=== PATIENT | female | born 1950 | race Caucasian/White ===

== ENCOUNTER 2017-06-24 10:56 | Inpatient (IN) | payer MEDICARE, BC ==
[~2017-06-24] VITALS: Ht 172.7 cm; Wt 97.1 kg
[2017-06-24] MEDS ORDERED: MECLIZINE CHEWABLE 25 MG TAB PO ONE (12:00)
[2017-06-24] MEDS ORDERED: SODIUM CHLORIDE FLUSH 10ML SYR IVF ONE (12:00)
[2017-06-24] MEDS ORDERED: SODIUM CHLORIDE 0.9% 1,000ML IVBOLUS ONE (12:00)
[2017-06-24] MEDS ORDERED: DIAZEPAM 5 MG/ML, 10ML VIAL IV ONE (12:00)
[2017-06-24] MEDS ORDERED: MECLIZINE CHEWABLE 25 MG TAB ONE (12:26)
[2017-06-24 12:59] LABS: BASOPHILS # (AUTO) 0.06 x10^3/uL (0-0.1); BASOPHILS % (AUTO) 1 % (0-1); EOSINOPHILS # (AUTO) 0.13 x10^3/uL (0-0.4); EOSINOPHILS % (AUTO) 1 % (1-7); LYMPHOCYTES # (AUTO) 1.42 x10^3/uL (1-3.4); LYMPHOCYTES % (AUTO) 14 % (22-44); MD NO; MEAN CORPUSCULAR HEMOGLOBIN 28.3 pg (27.0-34.8); MEAN CORPUSCULAR HGB CONC 33.1 g/dL (32.4-35.8); MEAN CORPUSCULAR VOLUME 85.7 fL (80-100); MONOCYTES # (AUTO) 0.89 x10^3/uL (0.2-0.8); MONOCYTES % (AUTO) 9 % (2-9); NEUTROPHILS # (AUTO) 7.47 x10^3/uL (1.8-6.8); NEUTROPHILS % (AUTO) 75 % (42-75); PLATELET COUNT 283 x10^3/uL (130-400); RED BLOOD COUNT 4.78 x10^6/uL (3.82-5.3); RED CELL DISTRIBUTION WIDTH 14.7 % (9.6-15.2)
[2017-06-24 13:00] LABS: INTERNATIONAL NORMALIZED RATIO 0.92 (0.93-1.1); PROTHROMBIN TIME 9.6 Seconds (9.6-11.5)
[2017-06-24 13:01] LABS: ALBUMIN 3.5 g/dL (3.4-5.0); ANION GAP 5 mmol/L (5-15); CALCIUM 8.6 mg/dL (8.5-10.1); CHLORIDE 108 mmol/L (98-107)
[2017-06-24 13:06] LABS: ALANINE AMINOTRANSFERASE 22 U/L (12-78); ALKALINE PHOSPHATASE 105 U/L (45-117); BILIRUBIN,TOTAL 0.4 mg/dL (0.2-1.0); CREATININE 0.68 mg/dL (0.55-1.02); TOTAL PROTEIN 7.6 g/dL (6.4-8.2); TROPONIN I < 0.015 ng/mL (0.000-0.045)
[2017-06-24] MEDS ORDERED: MECLIZINE CHEWABLE 25 MG TAB PO PRN (16:00)
[2017-06-24] MEDS: PLEASE ENTER ALLERGIES MC SCH ×2 (16:00→22:52)
[2017-06-24] MEDS ORDERED: METOCLOPRAMIDE 5 MG/ML, 2ML IVPush PRN (16:00)
[2017-06-24] MEDS ORDERED: ONDANSETRON 2MG/ML, 2ML IVPush PRN (16:00)
[2017-06-24] MEDS ORDERED: BISACODYL 10 MG SUPP PR PRN (16:00)
[2017-06-24] MEDS ORDERED: ENALAPRILAT 1.25 MG/ML, 2ML IVPush PRN (16:00)
[2017-06-24] MEDS ORDERED: DOCUSATE 100 MG CAPSULE PO PRN (16:00)
[2017-06-24] MEDS ORDERED: POLYETHYLENE GLYCOL 17 GM PACKET PO PRN (16:00)
[2017-06-24] MEDS ORDERED: LEVO25TA2 PO (16:19)
[2017-06-24] MEDS ORDERED: TRAM50TA2 PO (16:19)
[2017-06-24] MEDS ORDERED: DULO20CA45 PO (16:19)
[2017-06-24] MEDS ORDERED: GADOBUTROL 10 MMOL/10 ML PFS ONE (16:25)
[2017-06-24 18:12] VITALS: BP 151/83
[2017-06-24 18:20] LABS: MICROSCOPIC AUTO
[2017-06-24 18:22] LABS: CULTURE INDICATED? YES
[2017-06-24 20:15] VITALS: BP 122/70
[2017-06-25 02:00] VITALS: BP 108/63
[2017-06-25 02:18] VITALS: BP 121/67
[2017-06-25 07:10] VITALS: BP 125/74
[2017-06-25] MEDS ORDERED: MECL-85 PO (09:04)
[2017-06-25] MEDS ORDERED: DIAZEPAM 5 MG TABLET PO PRN (12:00)
[2017-06-25] MEDS ORDERED: DIAZEPAM 5 MG TABLET PO ONE (14:30)
[2017-06-25 15:09] VITALS: BP 147/84
[2017-06-25] MEDS ORDERED: SUMATRIPTAN 50 MG TABLET PO PRN (18:00)
[2017-06-25] MEDS ORDERED: SUMATRIPTAN 50 MG TABLET PO ONE (18:00)
[2017-06-25 20:00] VITALS: BP 153/81
[2017-06-26] VITALS (10 sets, daily range): BP systolic 143–169; BP diastolic 79–97
[2017-06-26] MEDS ORDERED: SODIUM CHLORIDE 0.9%, 500ML IVBOLUS ONE (12:30)
[2017-06-26] MEDS: ACETAMINOPHEN 325 MG TABLET PO PRN ×2 (17:53→22:30)
[2017-06-27] VITALS (15 sets, daily range): BP systolic 135–183; BP diastolic 82–109
[2017-06-27 05:26] LABS: BASOPHILS # (AUTO) 0.07 x10^3/uL (0-0.1); BASOPHILS % (AUTO) 1 % (0-1); EOSINOPHILS # (AUTO) 0.34 x10^3/uL (0-0.4); EOSINOPHILS % (AUTO) 4 % (1-7); LYMPHOCYTES # (AUTO) 2.59 x10^3/uL (1-3.4); LYMPHOCYTES % (AUTO) 30 % (22-44); MD NO; MEAN CORPUSCULAR HEMOGLOBIN 28.7 pg (27.0-34.8); MEAN CORPUSCULAR HGB CONC 33.4 g/dL (32.4-35.8); MEAN PLATELET VOLUME 7.9 fL (7.4-10.4); MONOCYTES # (AUTO) 1.14 x10^3/uL (0.2-0.8); MONOCYTES % (AUTO) 13 % (2-9); NEUTROPHILS # (AUTO) 4.58 x10^3/uL (1.8-6.8); NEUTROPHILS % (AUTO) 53 % (42-75); PLATELET COUNT 305 x10^3/uL (130-400); RED BLOOD COUNT 4.96 x10^6/uL (3.82-5.3); RED CELL DISTRIBUTION WIDTH 14.8 % (9.6-15.2)
[2017-06-27 05:40] LABS: ANION GAP 9 mmol/L (5-15); CALCIUM 9.4 mg/dL (8.5-10.1); CHLORIDE 107 mmol/L (98-107); CREATININE 0.66 mg/dL (0.55-1.02)
[2017-06-27] MEDS: LEVOTHYROXINE 25 MCG TABLET PO SCH (06:32)
[2017-06-27] MEDS ORDERED: SODIUM CHLORIDE 0.9%, 500ML IVBOLUS ONE (12:30)
[2017-06-27] MEDS: ACETAMINOPHEN 325 MG TABLET PO PRN (15:13)
[2017-06-27] MEDS: DULOXETINE 20 MG CAPSULE.DR PO SCH (16:47)
[2017-06-27] MEDS ORDERED: LABETALOL 5MG/ML, 20ML IVPush ONE (21:00)
[2017-06-28 02:41] VITALS: BP 144/82
[2017-06-28 02:43] VITALS: BP 110/73
[2017-06-28 05:19] LABS: BASOPHILS # (AUTO) 0.08 x10^3/uL (0-0.1); BASOPHILS % (AUTO) 1 % (0-1); EOSINOPHILS # (AUTO) 0.27 x10^3/uL (0-0.4); EOSINOPHILS % (AUTO) 3 % (1-7); LYMPHOCYTES # (AUTO) 2.51 x10^3/uL (1-3.4); LYMPHOCYTES % (AUTO) 25 % (22-44); MD NO; MEAN CORPUSCULAR HEMOGLOBIN 28.4 pg (27.0-34.8); MEAN CORPUSCULAR HGB CONC 33.2 g/dL (32.4-35.8); MEAN CORPUSCULAR VOLUME 85.4 fL (80-100); MEAN PLATELET VOLUME 7.8 fL (7.4-10.4); MONOCYTES # (AUTO) 1.15 x10^3/uL (0.2-0.8); MONOCYTES % (AUTO) 11 % (2-9); NEUTROPHILS % (AUTO) 61 % (42-75); PLATELET COUNT 315 x10^3/uL (130-400); RED BLOOD COUNT 5.43 x10^6/uL (3.82-5.3); RED CELL DISTRIBUTION WIDTH 14.7 % (9.6-15.2)
[2017-06-28 06:04] LABS: ALBUMIN 3.4 g/dL (3.4-5.0); ANION GAP 7 mmol/L (5-15); CALCIUM 9.5 mg/dL (8.5-10.1); CHLORIDE 108 mmol/L (98-107); CREATININE 0.76 mg/dL (0.55-1.02)
[2017-06-28] MEDS: LEVOTHYROXINE 25 MCG TABLET PO SCH (06:19)
[2017-06-28 07:08] VITALS: BP_SYST 130; BP_SYST 136; BP_DIAS 82; BP_DIAS 85
[2017-06-28 07:30] VITALS: BP_SYST 119; BP_SYST 127; BP_SYST 130; BP_SYST 135; BP_DIAS 85; BP_DIAS 88; BP_DIAS 91
[2017-06-28] MEDS: DULOXETINE 20 MG CAPSULE.DR PO SCH (09:01)
== END 2017-06-28 10:32 | disposition home or self-care (01) | DRG 312 ==
LOC: ED 13:47 → INTOOBSV 14:30 → EDIP 14:30 → 4WST 17:30 → OBSVTOIN 06-27 14:42
PROVIDERS: ADMIT Internal Medicine; ATTEND Internal Medicine
DX: I95.1 Orthostatic hypotension (principal); I11.9 Hypertensive heart disease without heart failure; I65.23 Occlusion and stenosis of bilateral carotid arteries; R42 Dizziness and giddiness; W18.30XA Fall on same level, unspecified, initial encounter; E03.9 Hypothyroidism, unspecified; F32.9 Major depressive disorder, single episode, unspecified; H91.90 Unspecified hearing loss, unspecified ear; G43.909 Migraine, unspecified, not intractable, without status migrainosus; Z66 Do not resuscitate; Y93.89 Activity, other specified; Y92.89 Other specified places as the place of occurrence of the external cause; Y99.8 Other external cause status; Z90.49 Acquired absence of other specified parts of digestive tract; Z79.899 Other long term (current) drug therapy; Z88.0 Allergy status to penicillin
CPT/HCPCS: 36415; 70450; 70553; 80048; 80053; 81001; 82040; 83605; 83735; 84100; 84484; 85025; 85610; 87086; 93005; 93306; 93880; 96360; A9585; G0378; J3360; J7030; J7040

== ENCOUNTER 2018-04-19 11:38 | Observation (INO) | payer MEDICARE, BC ==
[~2018-04-19] VITALS: Ht 172.7 cm; Wt 96.8 kg
[~2018-04-19 11:38] MED LIST: DULO20CA45 PO; LEVO25TA2 PO; MECL-85 PO; TRAM50TA2 PO
[2018-04-19] MEDS ORDERED: ONDANSETRON 2MG/ML, 2ML ONE (12:40)
[2018-04-19] MEDS ORDERED: MECLIZINE CHEWABLE 25 MG TAB ONE (12:40)
[2018-04-19 12:51] LABS: BASOPHILS # (AUTO) 0.06 x10^3/uL (0-0.1); BASOPHILS % (AUTO) 1 % (0-1); EOSINOPHILS # (AUTO) 0.31 x10^3/uL (0-0.4); EOSINOPHILS % (AUTO) 3 % (1-7); LYMPHOCYTES # (AUTO) 1.86 x10^3/uL (1-3.4); LYMPHOCYTES % (AUTO) 19 % (22-44); MD NO; MEAN CORPUSCULAR HEMOGLOBIN 28.1 pg (27.0-34.8); MEAN CORPUSCULAR HGB CONC 33.1 g/dL (32.4-35.8); MEAN CORPUSCULAR VOLUME 84.7 fL (80-100); MONOCYTES # (AUTO) 0.69 x10^3/uL (0.2-0.8); MONOCYTES % (AUTO) 7 % (2-9); NEUTROPHILS # (AUTO) 6.74 x10^3/uL (1.8-6.8); NEUTROPHILS % (AUTO) 70 % (42-75); PLATELET COUNT 336 x10^3/uL (130-400); RED BLOOD COUNT 4.87 x10^6/uL (3.82-5.3); RED CELL DISTRIBUTION WIDTH 15.1 % (9.6-15.2)
[2018-04-19] MEDS ORDERED: ONDANSETRON 2MG/ML, 2ML IVPush ONE (13:00)
[2018-04-19] MEDS ORDERED: SODIUM CHLORIDE FLUSH 10ML SYR IVF ONE (13:00)
[2018-04-19] MEDS ORDERED: MECLIZINE CHEWABLE 25 MG TAB PO ONE (13:00)
[2018-04-19 13:04] LABS: ALANINE AMINOTRANSFERASE 15 U/L (12-78); ALBUMIN 3.8 g/dL (3.4-5.0); ANION GAP 4 mmol/L (5-15); CALCIUM 9.3 mg/dL (8.5-10.1); CHLORIDE 110 mmol/L (98-107)
[2018-04-19 13:08] LABS: ALKALINE PHOSPHATASE 99 U/L (45-117); BILIRUBIN,TOTAL 0.4 mg/dL (0.2-1.0); TOTAL PROTEIN 7.7 g/dL (6.4-8.2); TROPONIN I < 0.015 ng/mL (0.000-0.045)
--- NOTE | 2018-04-19 13:13 | NUR ---
preceptor/break RN: 67 Y/O FEMALE PRESENTS TO ED WITH C/O VOMITING. PER PT "[facility] AND I FELT IT HIT. SOME VERTIGO REALLY BAD. I'VE HAD IT BEFORE. I GOT OUT AND WENT INTO THE LOCKER ROOM AND LAID DOWN. I JUST STARTED VOMITING." MEDICATIONS ADMINISTERED PER EMAR. PT HAD PIV PLACED AND DRYING SUPERVISOR COOKING CASING. NO ACUTE DISTRESS NOTED. NO C/O LOC, SYNCOPE, CP, SOB. PT GIVEN WARM BLANKETS.
--- NOTE | 2018-04-19 13:20 | NUR ---
BREAK RN: PT TO MRI
--- NOTE | 2018-04-19 13:54 | NUR ---
bedside report to DELISA Andre. pt still at imaging
[2018-04-19 15:00] LABS: MICROSCOPIC AUTO
[2018-04-19 15:06] LABS: CULTURE INDICATED? NO
[2018-04-19 16:42] VITALS: BP 127/83
[2018-04-19] MEDS ORDERED: LABETALOL 5MG/ML, 20ML IVPush PRN (17:00)
[2018-04-19] MEDS ORDERED: DOCUSATE 100 MG CAPSULE PO PRN (17:00)
[2018-04-19] MEDS ORDERED: MECLIZINE 12.5 MG TABLET PO PRN (17:00)
[2018-04-19] MEDS ORDERED: OXYcodone IR 5MG TABLET PO PRN (17:00)
[2018-04-19] MEDS ORDERED: TRAZODONE 50MG TABLET PO PRN (17:00)
[2018-04-19] MEDS ORDERED: GUAIFENESIN/COD200MG-20MG/10ML LIQUID PO PRN (17:00)
[2018-04-19] MEDS ORDERED: ONDANSETRON ODT 4 MG PO PRN (17:00)
[2018-04-19 17:10] VITALS: BP_SYST 136; BP_SYST 138; BP_SYST 144; BP_DIAS 83; BP_DIAS 84
[2018-04-19] MEDS ORDERED: LISI-420 PO (18:27)
[2018-04-19 19:10] VITALS: BP 147/79
[2018-04-19 19:12] VITALS: BP 139/85
[2018-04-19 19:14] VITALS: BP 122/82
[2018-04-19] MEDS: ACETAMINOPHEN 325 MG TABLET PO PRN (20:35)
[2018-04-19] MEDS ORDERED: MECLIZINE HCL 25 MG PO PRN (21:00)
[2018-04-19] MEDS ORDERED: LISINOPRIL 20 MG TABLET PO PRN (21:00)
[2018-04-19] MEDS ORDERED: DULOXETINE 20 MG CAPSULE.DR PO SCH (21:00)
[2018-04-20 01:15] VITALS: BP 116/74
[2018-04-20] MEDS: ACETAMINOPHEN 325 MG TABLET PO PRN ×2 (05:39→11:46)
[2018-04-20] MEDS ORDERED: LEVOTHYROXINE 25 MCG TABLET PO SCH (06:00)
[2018-04-20 07:35] VITALS: BP 120/75
[2018-04-20] MEDS ORDERED: ONDA4SOL2 PO (10:55)
[2018-04-20 13:05] VITALS: BP 106/64
== END 2018-04-20 17:01 | disposition home or self-care (01) ==
LOC: ED 14:13 → EDIP 15:20 → 3NE 15:46
PROVIDERS: ADMIT Internal Medicine; ATTEND Emergency Medicine
DX: R55 Syncope and collapse (principal); M54.2 Cervicalgia; I10 Essential (primary) hypertension; R11.2 Nausea with vomiting, unspecified; E03.9 Hypothyroidism, unspecified; F32.9 Major depressive disorder, single episode, unspecified; H81.10 Benign paroxysmal vertigo, unspecified ear; Z79.899 Other long term (current) drug therapy; Z96.642 Presence of left artificial hip joint; Z82.49 Family history of ischemic heart disease and other diseases of the circulatory system; Z80.0 Family history of malignant neoplasm of digestive organs
CPT/HCPCS: 36415; 70553; 80053; 81001; 83605; 84484; 85025; 93005; 96374; 99284; G0378; J2405; Q0162